=== PATIENT | male | born 1980 | race African-American/Black ===

== ENCOUNTER 2016-09-18 20:40 | Emergency (ER) | payer OTHER ==
[~2016-09-18] VITALS: Ht 185.4 cm; Wt 113.0 kg
[~2016-09-18 20:40] MED LIST: FLEXERIL10 MG PO; NAPROSYN500 MG PO; PERCOCET 10/1 TABLET PO; PERCOCET 5/31 TABLET PO; PREDNISONE20 MG PO
[2016-09-18 21:38] LABS: HEMATOCRIT 40.4 % (38.0-50.0); MCH 29.7 PG (29.0-34.0); MCHC 35.1 G/DL (30.0-36.0); MCV 84.5 FL (86-99); MEAN PLAT.VOLUME 9.4 uM^3 (9.0-12.4); PLATELET COUNT 256 K/uL (156-360); RBC DIS.WIDTH-CV 13.7 % (11.8-14.6); RBC DIS.WIDTH-SD 41.9 % (39-53); RED BLOOD COUNT 4.78 M/uL (4.00-5.50); WHITE BLOOD COUNT 8.4 K/uL (4.1-10.2)
[2016-09-18 21:49] LABS: CHLORIDE 104 mEq/L (99-109); POTASSIUM 3.4 mEq/L (3.7-5.4); SODIUM 138 mEq/L (136-147)
[2016-09-18 21:50] LABS: D-DIMER ELISA 0.28 mg/L FEU (< 0.57)
[2016-09-18 21:51] LABS: GLUCOSE 123 mg/dL (70-99)
[2016-09-18 21:52] LABS: ANION GAP 11 MEQ/L (2-14)
[2016-09-18 21:55] LABS: GFR ESTIMATE (CALCULATED) > 59 mL/min/
[2016-09-18 21:56] LABS: UREA NITROGEN (BUN) 11 mg/dL (9-23)
[2016-09-18 22:03] LABS: TROP-I INTERPRETATION NEGATIVE; TROPONIN-I < 0.01 ng/mL (0.0-0.30)
[2016-09-18 23:00] VITALS: BP 149/85
[2016-09-18] MEDS ORDERED: PREDNISONE20 MG PO (23:38)
[2016-09-18] MEDS ORDERED: ZITHROMAX Z-PA250 MG PO (23:38)
== END 2016-09-18 23:45 | disposition left against medical advice (07) ==
LOC: EME 20:40
PROVIDERS: Physician Assistant Medical
DX: R06.00 Dyspnea, unspecified (principal); J45.909 Unspecified asthma, uncomplicated; F17.200 Nicotine dependence, unspecified, uncomplicated
CPT/HCPCS: 71020; 80048; 84484; 85027; 85379; 93005; 94640; 99281; 99285; J1100